=== PATIENT | female | born 1995 | race Caucasian/White ===

== ENCOUNTER 2017-06-13 23:12 | Emergency (ER) | payer BC ==
[2017-06-13 23:26] VITALS: BP 121/77
[2017-06-14 00:07] LABS: ABSOLUTE BASOPHILS # (AUTO) 0.1 10^3/uL (0.0-0.2); ABSOLUTE EOSINOPHILS # (AUTO) 0.2 10^3/uL (0.0-0.6); ABSOLUTE LYMPHOCYTES (AUTO) 3.7 10^3/uL (0.5-4.7); ABSOLUTE MONOCYTES (AUTO) 0.5 10^3/uL (0.1-1.4); ABSOLUTE NEUT (AUTO) 7.1 10^3/uL (1.7-8.2); EOSINOPHILS % (AUTO) 1.6 % (0-6); HEMATOCRIT 38.6 % (36.0-47.0); LYMPHOCYTES % (AUTO) 31.9 % (13-45); MEAN CORPUSCULAR HEMOGLOBIN 28.5 pg (27.0-33.4); MEAN CORPUSCULAR HGB CONC 33.5 g/dL (32.0-36.0); MEAN CORPUSCULAR VOLUME 85 fl (80-97); MONOCYTES % (AUTO) 4.2 % (3-13); PLATELET COUNT 274 10^3/uL (150-450); RED BLOOD COUNT 4.54 10^6/uL (3.72-5.28); RED CELL DISTRIBUTION WIDTH 13.6 % (11.5-14.0); SEGMENTED NEUTROPHILS % (AUTO) 61.3 % (42-78); TOTAL CELLS COUNTED % (AUTO) 100 %; WHITE BLOOD COUNT 11.6 10^3/uL (4.0-10.5)
[2017-06-14 00:18] LABS: ALANINE AMINOTRANSFERASE 19 U/L (9-52); ALBUMIN 4.6 g/dL (3.5-5.0); ALKALINE PHOSPHATASE 87 U/L (38-126); ANION GAP 15 (5-19); ASPARTATE AMINO TRANSFERASE 16 U/L (14-36); BILIRUBIN,DIRECT 0.2 mg/dL (0.0-0.4); BILIRUBIN,TOTAL 0.3 mg/dL (0.2-1.3); BLOOD UREA NITROGEN 13 mg/dL (7-20); CALCIUM 9.9 mg/dL (8.4-10.2); CARBON DIOXIDE 18 mmol/L (22-30); CHLORIDE 107 mmol/L (98-107); GLUCOSE 138 mg/dL (75-110); POTASSIUM 3.6 mmol/L (3.6-5.0); TOTAL PROTEIN 7.1 g/dL (6.3-8.2)
[2017-06-14 00:22] LABS: APPEARANCE,URINE SLIGHTLY-CLOUDY; BILIRUBIN,URINE NEGATIVE (NEGATIVE); CALCIUM OXALATE CRYSTALS,URINE MANY /HPF; COLOR,URINE YELLOW; GLUCOSE, URINE NEGATIVE (NEGATIVE); KETONES,URINE 20 mg/dL (NEGATIVE); LEUKOCYTE ESTERASE,URINE NEGATIVE (NEGATIVE); NITRITE,URINE NEGATIVE (NEGATIVE); PROTEIN,URINE NEGATIVE (NEGATIVE); URINE SPECIFIC GRAVITY 1.032; UROBILINOGEN,URINE NEGATIVE mg/dL (<2.0)
[2017-06-14] MEDS ORDERED: KETOROLAC TROMETHAMINE INJ/PF 30 MG/1 ML SDV IV ONE (00:43)
[2017-06-14] MEDS ORDERED: ONDANSETRON HCL INJ/PF 4 MG/2 ML SDV IV ONE (00:43)
--- NOTE | 2017-06-14 00:45 | ER Document Report ---
ED General - General Chief Complaint: Flank Pain Stated Complaint: FLANK PAIN Time Seen by Provider: 06/14/17 00:39 Mode of Arrival: Ambulatory Information source: Patient Notes: 21-year-old female no previous medical history presents with complaints of left flank pain rating to her groin. Patient notes the pain started approximately at 10:00 tonight. She denies any fevers or chills admits to nausea and vomiting. Patient denies any previous history of kidney stones, notes her father has extensive history of kidney stones TRAVEL OUTSIDE OF THE [place] IN LAST 30 DAYS: No - HPI Onset: Just prior to arrival Onset/Duration: Sudden Quality of pain: Sharp Severity: Moderate Pain Level: 2 Associated symptoms: Nausea, Vomiting Exacerbated by: Denies Relieved by: Denies Similar symptoms previously: No Recently seen / treated by doctor: No - Related Data Allergies/Adverse Reactions: No Known Allergies Allergy (Verified 06/13/17 23:19) Past Medical History - Social History Smoking Status: Never Smoker Cigarette use (# per day): No Chew tobacco use (# tins/day): No Smoking Education Provided: No Family History: Other - kidney stone Past Surgical History: Reports: Hx Oral Surgery, Hx Orthopedic Surgery - left knee Review of Systems - Review of Systems Notes: REVIEW OF SYSTEMS: CONSTITUTIONAL : Denies fever, chills, or sweats. Denies recent illness. EENT: Denies eye, ear, throat, or mouth pain or symptoms. Denies nasal or sinus congestion or discharge. Denies throat, tongue, or mouth swelling or difficulty swallowing. CARDIOVASCULAR: Denies chest pain. Denies palpitations or racing or irregular heart beat. Denies ankle edema. RESPIRATORY: Denies cough, cold, or chest congestion. Denies shortness of breath, difficulty breathing, or wheezing. GASTROINTESTINAL: Admits to left flank pain rating to the groin with nausea vomiting GENITOURINARY: Denies difficulty urinating, painful urination, burning, frequency, blood in urine, or discharge. FEMALE GENITOURINARY: Denies vaginal bleeding, heavy or abnormal periods, irregular periods. Denies vaginal discharge or odor. MUSCULOSKELETAL: Denies back or neck pain or stiffness. Denies joint pain or swelling. SKIN: Denies rash, lesions or sores. HEMATOLOGIC : Denies easy bruising or bleeding. LYMPHATIC: Denies swollen, enlarged glands. NEUROLOGICAL: Denies confusion or altered mental status. Denies passing out or loss of consciousness. Denies dizziness or lightheadedness. Denies headache. Denies weakness or paralysis or loss of use of either side. Denies problems with gait or speech. Denies sensory loss, numbness, or tingling. Denies seizures. PSYCHIATRIC: Denies anxiety or stress. Denies depression, suicidal ideation, or homicidal ideation. ALL OTHER SYSTEMS REVIEWED AND NEGATIVE. PHYSICAL EXAMINATION: GENERAL: Well-appearing, well-nourished and in no acute distress. HEAD: Atraumatic, normocephalic. EYES: Pupils equal round and reactive to light, extraocular movements intact, conjunctiva are normal. ENT: Nares patent, oropharynx clear without exudates. Moist mucous membranes. NECK: Normal range of motion, supple without lymphadenopathy LUNGS: Breath sounds clear to auscultation bilaterally and equal. No wheezes rales or rhonchi. HEART: Regular rate and rhythm without murmurs ABDOMEN: Soft, nontender, nondistended abdomen. No guarding, no rebound. No masses appreciated. Left CVA tenderness Female : deferred Musculoskeletal: Normal range of motion, no pitting or edema. No cyanosis. NEUROLOGICAL: Cranial nerves grossly intact. Normal speech, normal gait. Normal sensory, motor exams PSYCH: Normal mood, normal affect. SKIN: Warm, Dry, normal turgor, no rashes or lesions noted. Dictation was performed using [employer] voice recognition software Physical Exam - Vital signs Vitals: Temp Pulse Resp BP Pulse Ox 97.5 F 88 20 121/77 100 06/13/17 23:24 06/13/17 23:24 06/13/17 23:24 06/13/17 23:24 06/13/17 23:24 Course - Re-evaluation Re-evalutation: 06/14/17 00:44 Patient's presentation is consistent with kidney stone, CT is pending urinalysis noted no significant sinus infection 06/14/17 02:55 CT noted no significant abnormality, given the urinalysis I do believe the patient has calcium oxalate stone, she was given a strainer and just prior to discharge she did urinate and catch a tiny crystal Patient has been given urology follow-up After performing a Medical Screening Examination, I estimate there is LOW risk for ACUTE APPENDICITIS, BOWEL OBSTRUCTION, ACUTE CHOLECYSTITIS, PERFORATED DIVERTICULITIS, INCARCERATED HERNIA, PANCREATITIS, PELVIC INFLAMMATORY DISEASE, PERFORATED ULCER, ECTOPIC , or TUBO-OVARIAN ABSCESS, thus I consider the discharge disposition reasonable. Also, there is no evidence or peritonitis , sepsis, or toxicity. I have reevaluated this patient multiple times and no significant life threatening changes are noted. The patient and I have discussed the diagnosis and risks, and we agree with discharging home with close follow-up with the understanding that symptoms and presentations can change. We also discussed returning to the Emergency Department immediately if new or worsening symptoms occur. We have discussed the symptoms which are most concerning (e.g., bloody stool, fever, changing or worsening pain, vomiting) that necessitate immediate return. - Vital Signs Vital signs: Temp Pulse Resp BP Pulse Ox 97.5 F 88 20 121/77 100 06/13/17 23:24 06/13/17 23:24 06/13/17 23:24 06/13/17 23:24 06/13/17 23:24 - Laboratory Result Diagrams: 06/13/17 23:35 06/13/17 23:35 Laboratory results interpreted by me: 06/13/17 06/13/17 06/13/17 23:35 23:35 23:35 WBC 11.6 H Carbon Dioxide 18 L Glucose 138 H Urine Ketones 20 H - Diagnostic Test Radiology reviewed: Image reviewed, Reports reviewed Discharge - Discharge Clinical Impression: Kidney stone Condition: Stable Disposition: HOME, SELF-CARE Instructions: Kidney Stone ([facility]) Prescriptions: Ketorolac Tromethamine [Toradol 10 mg Tablet] 10 mg PO Q8 #30 tablet Metoclopramide HCl [Reglan] 10 mg PO Q6 #20 tablet Referrals: MARCUS MONAE MD [ACTIVE STAFF] - Follow up tomorrow
--- NOTE | 2017-06-14 01:53 | RADIOLOGY REPORT (SQ) ---
EXAM DESCRIPTION: CT ABDOMEN AND PELVIS WITHOUT CONTRAST CLINICAL HISTORY: left flank pain COMPARISON: None Available. TECHNIQUE: CT of the abdomen and pelvis without IV contrast. FINDINGS: Abdomen: The liver has normal size and density. No calcified gallstones. The spleen, pancreas, and adrenal glands are unremarkable. The kidneys have normal size and contour without evidence of hydronephrosis. No obstructing ureteral calculi. The aorta and IVC have normal caliber and position. No free intraperitoneal air. The stomach and duodenum have normal course. Pelvis: Uterus is not enlarged. Urinary bladder is unremarkable. No free pelvic fluid or lymphadenopathy. No dilated loops of large or small bowel. The appendix is not definitely identified however no right lower quadrant inflammatory change. Punctate calcified phleboliths in the pelvis. Hyperdense material in the distal colon may be related to previously administered oral contrast. The visualized lung bases are clear. No destructive bone lesions identified. DLP: 238.14 mGy-cm IMPRESSION: 1. No acute inflammatory or obstructive abnormality identified This exam was performed according to our departmental dose-optimization program, which includes automated exposure control, adjustment of the mA and/or kV according to patient size and/or use of iterative reconstruction technique.
== END 2017-06-14 02:40 | disposition home or self-care (01) ==
LOC: ER 23:12
DX: N20.0 Calculus of kidney (principal); R10.30 Lower abdominal pain, unspecified; R11.2 Nausea with vomiting, unspecified
CPT/HCPCS: 99284; 96374; 96375; 36415; 87086; 83690; 85025; 81025; 80053; 81001; 76380; J1885; J2405

== ENCOUNTER 2017-07-18 08:57 | Emergency (ER) | payer BC ==
[2017-07-18] MEDS ORDERED: NORMAL SALINE 1000 ML 900 ML IV ONE (10:15)
--- NOTE | 2017-07-18 10:18 | ER Document Report ---
ED General - General Chief Complaint: High Blood Pressure Stated Complaint: BLOOD PRESSURE PROBLEMS Time Seen by Provider: 07/18/17 09:58 Mode of Arrival: Ambulatory Information source: Patient, Parent Notes: Patient states that she felt faint this morning and then started to have palpitations. Patient states at the time she had chest pain, nausea and dizziness. Patient states symptoms lasted for about an hour. Patient states that her left arm has felt weird and she has had tingling to the left fourth and fifth fingers to the level about her elbow. Patient does state she had a similar episode about a week ago but did not get seen after that incident. States she did eat breakfast today. Patient presently denies any complaints at this time. TRAVEL OUTSIDE OF THE [place] IN LAST 30 DAYS: No - HPI Onset: This morning Onset/Duration: Better Quality of pain: Pressure Pain Level: Denies Associated symptoms: Chest pain, Nausea. denies: Nonproductive cough, Productive cough, Fever, Vomiting, Shortness of breath Exacerbated by: Denies Relieved by: Denies Similar symptoms previously: Yes Recently seen / treated by doctor: No - Related Data Allergies/Adverse Reactions: No Known Allergies Allergy (Verified 07/18/17 09:08) Past Medical History - General Information source: Patient, Parent - Social History Smoking Status: Never Smoker Chew tobacco use (# tins/day): No Frequency of alcohol use: None Drug Abuse: None Occupation: Student Lives with: Family Family History: None Patient has suicidal ideation: No Patient has homicidal ideation: No - Medical History Medical History: Negative Renal/ Medical History: Denies: Hx Peritoneal Dialysis Past Surgical History: Reports: Hx Oral Surgery, Hx Orthopedic Surgery - left knee, Hx Tonsillectomy Review of Systems - Review of Systems Constitutional: No symptoms reported. denies: Fever, Recent illness EENT: No symptoms reported Cardiovascular: Chest pain, Palpitations, Dizziness Respiratory: No symptoms reported. denies: Cough Gastrointestinal: Nausea. denies: Vomiting Genitourinary: No symptoms reported Female Genitourinary: No symptoms reported Musculoskeletal: No symptoms reported Skin: No symptoms reported Hematologic/Lymphatic: No symptoms reported Neurological/Psychological: Tingling - Left upper extremity. denies: Confusion Physical Exam - Vital signs Vitals: Temp Pulse Resp BP Pulse Ox 98.5 F 105 H 16 126/65 H 100 07/18/17 09:12 07/18/17 09:12 07/18/17 09:12 07/18/17 09:12 07/18/17 09:12 - General General appearance: Appears well, Alert In distress: None - HEENT Head: Normocephalic Eyes: Normal Conjunctiva: Normal Ears: Normal Nasal: Normal Mouth/Lips: Normal Mucous membranes: Normal Neck: Normal, Supple. No: Lymphadenopathy, Meningismus - Respiratory Respiratory status: No respiratory distress Chest status: Nontender Breath sounds: Normal. No: Rales, Rhonchi, Stridor, Wheezing Chest palpation: Normal - Cardiovascular Rhythm: Tachycardia Heart sounds: S1 appreciated, S2 appreciated Murmur: No - Abdominal Inspection: Normal Distension: No distension Bowel sounds: Normal Tenderness: Nontender Organomegaly: No organomegaly - Back Back: Normal, Nontender. No: CVA tenderness - Extremities General upper extremity: Normal inspection, Normal ROM General lower extremity: Normal inspection, Normal ROM. No: Edema - Neurological Neuro grossly intact: Yes Cognition: Normal Orientation: AAOx4 Mary Coma Scale Eye Opening: Spontaneous Mary Coma Scale Verbal: Oriented [place] Coma Scale Motor: Obeys Commands Mary Coma Scale Total: 15 Speech: Normal. No: Dysarthria Cranial nerves: Normal Motor strength normal: LUE, RUE, LLE, RLE - Psychological Associated symptoms: Normal affect, Normal mood - Skin Skin Temperature: Warm Skin Moisture: Dry Skin Color: Pale Course - Re-evaluation Re-evalutation: 07/18/17 12:[address] Weiss regarding patient presentation, reviewed patient's EKG and diagnostic test results. No additional testing advised at this time. The patient has atypical chest pain as the patient's chest pain is not suggestive of pulmonary embolus, cardiac ischemia, aortic dissection, or other serious etiology. Given the extremely low risk of these diagnoses for the test in evaluation for these possibilities does not appear to be indicated at this time. Patient has been instructed to return if the symptoms worsen or change in any way.Heart score 0. - Vital Signs Vital signs: Temp Pulse Resp BP Pulse Ox 98.1 F 90 16 125/60 100 07/18/17 13:10 07/18/17 13:10 07/18/17 13:10 07/18/17 13:10 07/18/17 13:10 - Laboratory Result Diagrams: 07/18/17 11:10 07/18/17 11:10 Laboratory results interpreted by me: 07/18/17 07/18/17 11:10 11:10 WBC 11.5 H Absolute Neutrophils 8.9 H Calcium 10.4 H Labs- Entire Visit 07/18/17 07/18/17 07/18/17 09:51 11:10 11:10 WBC 11.5 H RBC 4.63 Hgb 13.4 Hct 40.0 MCV 86 MCH 28.9 MCHC 33.5 RDW 13.4 Plt Count 272 Seg Neutrophils % 76.9 Lymphocytes % 17.5 Monocytes % 4.2 Eosinophils % 0.6 Basophils % 0.8 Absolute Neutrophils 8.9 H Absolute Lymphocytes 2.0 Absolute Monocytes 0.5 Absolute Eosinophils 0.1 Absolute Basophils 0.1 D-Dimer < 0.27 Sodium Potassium Chloride Carbon Dioxide Anion Gap BUN Creatinine Est GFR ( Amer) Est GFR (Non-Af Amer) Glucose Calcium Total Bilirubin Direct Bilirubin Neonat Total Bilirubin Neonat Direct Bilirubin Neonat Indirect Bili AST ALT Alkaline Phosphatase Creatine Kinase CK-MB (CK-2) Troponin I Total Protein Albumin TSH Serum HCG, Qual Urine Color STRAW Urine Appearance CLEAR Urine pH 6.0 Ur Specific [place] 1.006 Urine Protein NEGATIVE Urine Glucose (UA) NEGATIVE Urine Ketones NEGATIVE Urine Blood NEGATIVE Urine Nitrite NEGATIVE Urine Bilirubin NEGATIVE Urine Urobilinogen NEGATIVE Ur Leukocyte Esterase NEGATIVE Urine WBC (Auto) 0 Urine RBC (Auto) 0 Urine Mucus (Auto) RARE Urine Ascorbic Acid NEGATIVE 07/18/17 07/18/17 07/18/17 11:10 11:10 11:10 WBC RBC Hgb Hct MCV MCH MCHC RDW Plt Count Seg Neutrophils % Lymphocytes % Monocytes % Eosinophils % Basophils % Absolute Neutrophils Absolute Lymphocytes Absolute Monocytes Absolute Eosinophils Absolute Basophils D-Dimer Sodium 141.3 Potassium 4.7 Chloride 105 Carbon Dioxide 23 Anion Gap 13 BUN 10 Creatinine 0.63 Est GFR ( Amer) > 60 Est GFR (Non-Af Amer) > 60 Glucose 79 Calcium 10.4 H Total Bilirubin 0.3 Direct Bilirubin 0.1 Neonat Total Bilirubin Not Reportable Neonat Direct Bilirubin Not Reportable Neonat Indirect Bili Not Reportable AST 20 ALT 21 Alkaline Phosphatase 76 Creatine Kinase 50 CK-MB (CK-2) 0.38 Troponin I < 0.012 Total Protein 7.4 Albumin 4.8 TSH Serum HCG, Qual NEGATIVE Urine Color Urine Appearance Urine pH Ur Specific [place] Urine Protein Urine Glucose (UA) Urine Ketones Urine Blood Urine Nitrite Urine Bilirubin Urine Urobilinogen Ur Leukocyte Esterase Urine WBC (Auto) Urine RBC (Auto) Urine Mucus (Auto) Urine Ascorbic Acid 07/18/17 11:10 WBC RBC Hgb Hct MCV MCH MCHC RDW Plt Count Seg Neutrophils % Lymphocytes % Monocytes % Eosinophils % Basophils % Absolute Neutrophils Absolute Lymphocytes Absolute Monocytes Absolute Eosinophils Absolute Basophils D-Dimer Sodium Potassium Chloride Carbon Dioxide Anion Gap BUN Creatinine Est GFR ( Amer) Est GFR (Non-Af Amer) Glucose Calcium Total Bilirubin Direct Bilirubin Neonat Total Bilirubin Neonat Direct Bilirubin Neonat Indirect Bili AST ALT Alkaline Phosphatase Creatine Kinase CK-MB (CK-2) Troponin I Total Protein Albumin TSH 1.21 Serum HCG, Qual Urine Color Urine Appearance Urine pH Ur Specific [place] Urine Protein Urine Glucose (UA) Urine Ketones Urine Blood Urine Nitrite Urine Bilirubin Urine Urobilinogen Ur Leukocyte Esterase Urine WBC (Auto) Urine RBC (Auto) Urine Mucus (Auto) Urine Ascorbic Acid - Diagnostic Test Radiology reviewed: Reports reviewed - EKG Interpretation by Me EKG shows normal: Sinus rhythm Rate: Normal Discharge - Discharge Clinical Impression: Palpitations Chest pain Qualifiers: Chest pain type: unspecified Qualified Code(s): R07.9 - Chest pain, unspecified Condition: Stable Disposition: HOME, SELF-CARE Instructions: Chest Pain of Unclear Cause ([facility]), Palpitations (Irregular or Rapid Heartrate) ([facility]) Additional Instructions: Return immediately for any new or worsening symptoms Followup with your primary care provider, call tomorrow to make a followup appointment Follow-up with your manager sas for recheck Forms: Return to School Referrals: MIKAEL TRAN MD [ACTIVE STAFF] - Follow up in 3-5 days
[2017-07-18 10:43] LABS: APPEARANCE,URINE CLEAR; BILIRUBIN,URINE NEGATIVE (NEGATIVE); COLOR,URINE STRAW; GLUCOSE, URINE NEGATIVE (NEGATIVE); KETONES,URINE NEGATIVE (NEGATIVE); LEUKOCYTE ESTERASE,URINE NEGATIVE (NEGATIVE); NITRITE,URINE NEGATIVE (NEGATIVE); PROTEIN,URINE NEGATIVE (NEGATIVE); URINE SPECIFIC GRAVITY 1.006; UROBILINOGEN,URINE NEGATIVE mg/dL (<2.0)
--- NOTE | 2017-07-18 10:52 | RADIOLOGY REPORT (SQ) ---
EXAM DESCRIPTION: CHEST PA/LAT COMPLETED DATE/TIME: 07/18/2017 10:42 am REASON FOR STUDY: cp COMPARISON: None. EXAM PARAMETERS: NUMBER OF VIEWS: two views TECHNIQUE: Digital Frontal and Lateral radiographic views of the chest acquired. RADIATION DOSE: NA LIMITATIONS: none FINDINGS: LUNGS AND PLEURA: No opacities, masses or pneumothorax. No pleural effusion. MEDIASTINUM AND HILAR STRUCTURES: No masses or contour abnormalities. HEART AND VASCULAR STRUCTURES: Heart normal size. No evidence for failure. BONES: No acute findings. HARDWARE: None in the chest. OTHER: No other significant finding. IMPRESSION: NO SIGNIFICANT RADIOGRAPHIC FINDING IN THE CHEST. TECHNICAL DOCUMENTATION: JOB ID: [id number] [employer]- All Rights Reserved
--- NOTE | 2017-07-18 11:01 | EKG REPORT ---
SEVERITY:- NORMAL ECG - SINUS RHYTHM : Confirmed by: Billy Parker 18-Jul-2017 11:01:03
[2017-07-18 11:33] LABS: ABSOLUTE BASOPHILS # (AUTO) 0.1 10^3/uL (0.0-0.2); ABSOLUTE EOSINOPHILS # (AUTO) 0.1 10^3/uL (0.0-0.6); ABSOLUTE MONOCYTES (AUTO) 0.5 10^3/uL (0.1-1.4); ABSOLUTE NEUT (AUTO) 8.9 10^3/uL (1.7-8.2); BASOPHILS % (AUTO) 0.8 % (0-2); EOSINOPHILS % (AUTO) 0.6 % (0-6); HEMOGLOBIN 13.4 g/dL (12.0-15.5); LYMPHOCYTES % (AUTO) 17.5 % (13-45); MEAN CORPUSCULAR HEMOGLOBIN 28.9 pg (27.0-33.4); MEAN CORPUSCULAR HGB CONC 33.5 g/dL (32.0-36.0); MEAN CORPUSCULAR VOLUME 86 fl (80-97); MONOCYTES % (AUTO) 4.2 % (3-13); PLATELET COUNT 272 10^3/uL (150-450); RED BLOOD COUNT 4.63 10^6/uL (3.72-5.28); RED CELL DISTRIBUTION WIDTH 13.4 % (11.5-14.0); SEGMENTED NEUTROPHILS % (AUTO) 76.9 % (42-78); TOTAL CELLS COUNTED % (AUTO) 100 %; WHITE BLOOD COUNT 11.5 10^3/uL (4.0-10.5)
[2017-07-18 11:49] LABS: ALANINE AMINOTRANSFERASE 21 U/L (9-52); ALBUMIN 4.8 g/dL (3.5-5.0); ALKALINE PHOSPHATASE 76 U/L (38-126); ANION GAP 13 (5-19); ASPARTATE AMINO TRANSFERASE 20 U/L (14-36); BILIRUBIN,DIRECT 0.1 mg/dL (0.0-0.4); BILIRUBIN,TOTAL 0.3 mg/dL (0.2-1.3); BLOOD UREA NITROGEN 10 mg/dL (7-20); CALCIUM 10.4 mg/dL (8.4-10.2); CARBON DIOXIDE 23 mmol/L (22-30); CHLORIDE 105 mmol/L (98-107); CREATINE KINASE 50 U/L (30-135); GLUCOSE 79 mg/dL (75-110); POTASSIUM 4.7 mmol/L (3.6-5.0); SODIUM 141.3 mmol/L (137-145); TOTAL PROTEIN 7.4 g/dL (6.3-8.2)
[2017-07-18 12:06] LABS: CREATINE KINASE MB 0.38 ng/mL (<4.55); TROPONIN I < 0.012 ng/mL
[2017-07-18 13:11] VITALS: BP 125/60
== END 2017-07-18 13:11 | disposition home or self-care (01) ==
LOC: ER 08:57
DX: R07.9 Chest pain, unspecified (principal); R00.2 Palpitations; R03.0 Elevated blood-pressure reading, without diagnosis of hypertension; R11.0 Nausea; R42 Dizziness and giddiness; R20.0 Anesthesia of skin
CPT/HCPCS: 93005; 99285; 96360; 36415; 82553; 82550; 84443; 84703; 85025; 80053; 81001; 84484; 85379; 71046; 93010; J7030

== ENCOUNTER 2018-05-15 20:14 | Emergency (ER) | payer BC ==
--- NOTE | 2018-05-15 21:38 | ER Document Report ---
ED General - General Chief Complaint: Other Stated Complaint: NEEDS SHOT Time Seen by Provider: 05/15/18 21:07 Notes: Patient is a 22-year old female at approximately 7 weeks gestation who presents due to concerns of needing RhoGam. The patient was seen as an outpatient earlier today, diagnosed with a intrauterine with an active heart rate but was informed that she was Rh- and would need to come to the emergency department for RhoGam administration. She states that she has had some intermittent cramping since the onset of bleeding over the last several days and mild vaginal spotting. That pain is mild, intermittent and not improved or worsened by any factor. Denies any active bleeding currently. Denies any new concerns stating that her only reason for coming to the emergency department today is for RhoGam administration. TRAVEL OUTSIDE OF THE [place] IN LAST 30 DAYS: No - Related Data Allergies/Adverse Reactions: No Known Allergies Allergy (Verified 07/18/17 09:08) Past Medical History - General Information source: Patient - Social History Smoking Status: Never Smoker Chew tobacco use (# tins/day): No Frequency of alcohol use: None Drug Abuse: None Lives with: Parents Family History: Reviewed & Not Pertinent Patient has suicidal ideation: No Patient has homicidal ideation: No Renal/ Medical History: Denies: Hx Peritoneal Dialysis Past Surgical History: Reports: Hx Oral Surgery, Hx Orthopedic Surgery - left knee, Hx Tonsillectomy Review of Systems - Review of Systems Notes: Constitutional: Negative for fever. HENT: Negative for sore throat. Eyes: Negative for visual changes. Cardiovascular: Negative for chest pain. Respiratory: Negative for shortness of breath. Gastrointestinal: Positive for abdominal cramping Genitourinary: Positive for vaginal bleeding Musculoskeletal: Negative for back pain. Skin: Negative for rash. Neurological: Negative for headaches, weakness or numbness. 10 point ROS negative except as marked above and in HPI. Physical Exam - Vital signs Vitals: Temp Pulse Resp BP Pulse Ox 98.6 F 102 H 15 122/69 100 05/15/18 20:40 05/15/18 20:40 05/15/18 20:40 05/15/18 20:40 05/15/18 20:40 Interpretation: Tachycardic Notes: PHYSICAL EXAMINATION: GENERAL: Well-appearing, well-nourished and in no acute distress. HEAD: Atraumatic, normocephalic. EYES: Pupils equal round and reactive to light, extraocular movements intact, sclera anicteric, conjunctiva are normal. ENT: nares patent, oropharynx clear without exudates. Moist mucous membranes. NECK: Normal range of motion, supple without lymphadenopathy LUNGS: Breath sounds clear to auscultation bilaterally and equal. No wheezes rales or rhonchi. HEART: Regular rate and rhythm without murmurs ABDOMEN: Soft, nontender, normoactive bowel sounds. No guarding, no rebound. No masses appreciated. EXTREMITIES: Normal range of motion, no pitting or edema. No cyanosis. NEUROLOGICAL: No focal neurological deficits. Moves all extremities spontaneously and on command. PSYCH: Normal mood, normal affect. SKIN: Warm, Dry, normal turgor, no rashes or lesions noted. Course - Re-evaluation Re-evalutation: 05/15/18 21:37 Patient presents with a need for rhogam. She has had light vaginal spotting over the past 48 hours, already had an outpatient workup done today that showed a viable iup but that she is rh negative. She was referred to the emergency department exclusively for administration of RhoGam. she denies any other current complaints. She has received a appropriate dose of RhoGam here in the emergency department and will be discharged home. At this time will discharge with return precautions and follow-up recommendations. Verbal discharge instructions given a the bedside and opportunity for questions given. Medication warnings reviewed. Patient is in agreement with this plan and has verbalized understanding of return precautions and the need for primary care follow-up in the next 24-72 hours. - Vital Signs Vital signs: Temp Pulse Resp BP Pulse Ox 98.5 F 92 18 102/68 99 05/16/18 00:28 05/16/18 00:28 05/16/18 00:28 05/16/18 00:28 05/16/18 00:28 Discharge - Discharge Clinical Impression: Need for rhogam due to Rh negative mother, First trimester bleeding Condition: Good Disposition: HOME, SELF-CARE Additional Instructions: You were seen today for Rhogam. Please follow closely with your primary care OB/ ELEV[employer] MECH[employer]IC. Please return if you develop severe abdominal pain, bleeding that goes through more than 2 pads for more than 2 hours, pass out, or have any other symptoms that are concerning to you. Please follow-up closely with your OBGYN regarding todays visit.
[2018-05-16 00:30] VITALS: BP 102/68
== END 2018-05-16 00:34 | disposition home or self-care (01) ==
LOC: ER 20:14
DX: O36.0910 Maternal care for other rhesus isoimmunization, first trimester, not applicable or unspecified (principal); Z3A.01 Less than 8 weeks gestation of pregnancy
CPT/HCPCS: 99283; 96372; 86900; 86901; 36415; J2790

== ENCOUNTER → 2018-05-15 | Outpatient (CLI) | payer BC | LOC: OD 16:29 | PROVIDERS: ATTEND Midwife | DX: O26.859 Spotting complicating pregnancy, unspecified trimester (principal) | CPT/HCPCS: 36415; 86850; 86900; 86901 ==

== ENCOUNTER 2018-11-18 18:18 | Observation (INO) | payer BC ==
[2018-11-18 19:03] LABS: APPEARANCE,URINE CLEAR; BILIRUBIN,URINE NEGATIVE (NEGATIVE); COLOR,URINE COLORLESS; GLUCOSE, URINE NEGATIVE (NEGATIVE); KETONES,URINE NEGATIVE (NEGATIVE); LEUKOCYTE ESTERASE,URINE NEGATIVE (NEGATIVE); NITRITE,URINE NEGATIVE (NEGATIVE); PROTEIN,URINE NEGATIVE (NEGATIVE); URINE SPECIFIC GRAVITY 1.001; UROBILINOGEN,URINE NEGATIVE mg/dL (<2.0)
[2018-11-18 19:18] LABS: URINE AMPHETAMINES SCREEN NEGATIVE; URINE BARBITURATES SCREEN NEGATIVE; URINE BENZODIAZEPINES SCREEN NEGATIVE; URINE COCAINE SCREEN NEGATIVE; URINE MARIJUANA (THC) SCREEN NEGATIVE; URINE METHADONE SCREEN NEGATIVE; URINE PHENCYCLIDINE SCREEN NEGATIVE
[2018-11-18] MEDS ORDERED: RINGERS SOLUTION,LACTATED 1,000 ML IV PRN (19:34)
[2018-11-18] MEDS ORDERED: RINGERS SOLUTION,LACTATED 1,000 ML IV ONE (19:34)
[2018-11-18 20:30] LABS: EPITHELIALS (WET MOUNT) 3+ EPITHELIALS SEEN; RBCS (WET MOUNT) NO RBCS SEEN; T.VAGINALIS (WET MOUNT) NO TRICHOMONAS SEEN; WBCS (WET MOUNT) RARE WBCS SEEN; YEAST (WET MOUNT) NO YEAST SEEN
[2018-11-18] MEDS ORDERED: HYDROXYZINE PAMOATE 50 MG CAPSULE ONE (21:33)
[2018-11-18 21:57] LABS: CHLAM PCR NOT DETECTED (NOT DETECT)
[2018-11-18] MEDS ORDERED: NIFEDIPINE 10 MG CAPSULE ONE (22:36)
[2018-11-18] MEDS ORDERED: BETAMET ACET/BETAMET NA INJ 6 MG/1 ML ONE ×3 (22:36→22:49)
[2018-11-18] MEDS ORDERED: NIFEDIPINE 10 MG CAPSULE PO ONE (22:45)
[2018-11-18] MEDS ORDERED: BETAMET ACET/BETAMET NA INJ 6 MG/1 ML IM ONE (22:45)
[2018-11-19] MEDS ORDERED: NIFEDIPINE 10 MG CAPSULE PO SCH (03:00)
--- NOTE | 2018-11-19 06:51 | Admission Physical ---
Datetime Report Generated by CPN: 11/19/2018 06:51 CURRENT ADMISSION Chief Complaint: Uterine Contractions Indication for Induction: Not Applicable Admit Impression : , Intrauterine ; No Active Labor; Observation/Evaluation Admit Plan: Admit to Unit; Observation/Evaluation ALLERGIES Medication Allergies: No Medication Allergies: No Known Allergies (07/18/2017) Latex: No Latex Allergies OBSTETRICAL HISTORY EDC: 01/06/2019 00:00 : 1 Para: 0 SEE RECORDS Alcohol: No Marijuana : No Cocaine: No Other Illicit Drugs: No Cigarettes: Never Smoker. [id number] PHYSICAL EXAM General: Normal HEENT: Normal Neurologic: Normal Thyroid: Deferred Heart: Normal Lungs: Normal Breast: Deferred Back: Normal Abdomen: Normal Genitourinary Exam: Normal Extremities: Normal DTRs: Normal Pelvic Type: Adequate Vital Signs: Reviewed VAGINAL EXAM Dilatation: 1 Effacement: 60 Station: 0 Contraction Comments: q 2-3 MEMBRANES Membranes: Intact FETUS A EGA: 33.0 Monitoring: External US FHR- Baseline: 130 Variability: Moderate 6-25bpm Accelerations: 15X15 Decelerations: None FHR Category: Category I Presentation: Vertex Admit Comment: 23yo at 33+1ega presents with c/o contractions. She was noted to be having contractions q 2minutes painfully. Vistaril did not help to dissipate patients discomfort. Rh negative. Declined pap smear on new OB visit. Admit to labor and delivery. Celestone 12mg IM x 1 then repeat in 24 hrs. Cervical exam 1.5cm dilated and stable after Procardia 10mg Q 6 hours. If procardia continues to help with contractions and cvx doesnt change likely able to go home after next BMZ. PLANS FOR LABOR AND DELIVERY Labor and Delivery: None Pain Management: Medications; Epidural Feeding Preference: Breast Benefit of Breast Feed Discussed: Yes Circumcision: Yes INFORMED CONSENT Informed Consent Obtained: Vaginal Delivery; Risks, Benefits and Alternatives Discussed Signature: with User ID: [email or web address]
[2018-11-19] MEDS ORDERED: NIFEDIPINE 30 MG TAB.ER.24 PO ONE (07:26)
[2018-11-19] MEDS ORDERED: BETAMET ACET/BETAMET NA INJ 6 MG/1 ML IM PRN (09:04)
[2018-11-19] MEDS ORDERED: BETAMET ACET/BETAMET NA INJ 6 MG/1 ML ONE (11:02)
== END 2018-11-19 13:44 | disposition home or self-care (01) ==
LOC: LC 18:18 → LR 23:16
PROVIDERS: ADMIT Student in an Organized Health Care Education/Training Program; ATTEND Student in an Organized Health Care Education/Training Program
DX: O60.03 Preterm labor without delivery, third trimester (principal)
CPT/HCPCS: 59025; 80307; 81001; 87081; 87210; 87491; 87591; J0702; J3490

== ENCOUNTER 2018-12-10 11:32 | Outpatient (CLI) | payer BC, MEDICAID ==
--- NOTE | 2018-12-10 11:49 | Non Stress Test Report ---
Non Stress Test Datetime Report Generated by CPN: 12/10/2018 11:48 DEMOGRAPHIC EGA NST: 33.1 INDICATION Indication for Study: labor VITAL SIGNS Temperature - NST: 98.1 Pulse - NST: 102 RESP - NST: 18 NBPSYS NST: 114 NBPDIA NST: 68 MONITORING Monitor Explained: Monitor Explained; Test Explained; Patient Verbalized Understanding Time on Monitor: 11/19/2018 07:30 Time off Monitor: 11/19/2018 07:50 NST Duration: 20 NST INTERVENTIONS NST Interventions: PO Hydration; IV Fluids; Reposition Patient Physician Notified NST: J Rodrigues CNM BABY A: [id number] BABY A Movement : Present Contraction Frequency : irregular FHR Baseline : 135 Accelerations : 15X15 Decelerations : None Variability : Moderate 6-25bpm NST Review: Meets Criteria for Reactive NST NST Review and Verified By : Preston Wagner RN NST Results: Reactive NST REPORT Report Trigger: Send Report
[2018-12-10 12:11] LABS: APPEARANCE,URINE CLEAR; BILIRUBIN,URINE NEGATIVE (NEGATIVE); COLOR,URINE YELLOW; GLUCOSE, URINE NEGATIVE (NEGATIVE); KETONES,URINE TRACE mg/dL (NEGATIVE); LEUKOCYTE ESTERASE,URINE NEGATIVE (NEGATIVE); NITRITE,URINE NEGATIVE (NEGATIVE); PROTEIN,URINE NEGATIVE (NEGATIVE); URINE SPECIFIC GRAVITY 1.017; UROBILINOGEN,URINE NEGATIVE mg/dL (<2.0)
[2018-12-10 12:29] LABS: URINE AMPHETAMINES SCREEN NEGATIVE; URINE BARBITURATES SCREEN NEGATIVE; URINE BENZODIAZEPINES SCREEN NEGATIVE; URINE COCAINE SCREEN NEGATIVE; URINE MARIJUANA (THC) SCREEN NEGATIVE; URINE METHADONE SCREEN NEGATIVE; URINE PHENCYCLIDINE SCREEN NEGATIVE
== END 2018-12-10 13:40 | disposition home or self-care (01) ==
LOC: LC 11:32
PROVIDERS: ATTEND Obstetrics & Gynecology
PROC: 4A1HXCZ Monitoring of Products of Conception, Cardiac Rate, External Approach (ICD-10-PCS; principal; 2018-12-10)
DX: O47.03 False labor before 37 completed weeks of gestation, third trimester (principal); Z3A.36 36 weeks gestation of pregnancy
CPT/HCPCS: 59025; 80307; 81001; 84112

== ENCOUNTER 2018-12-24 12:21 | Outpatient (CLI) | payer BC, MEDICAID ==
[2018-12-24 12:45] LABS: APPEARANCE,URINE SLIGHTLY-CLOUDY; BILIRUBIN,URINE NEGATIVE (NEGATIVE); COLOR,URINE YELLOW; GLUCOSE, URINE NEGATIVE (NEGATIVE); KETONES,URINE NEGATIVE (NEGATIVE); LEUKOCYTE ESTERASE,URINE MODERATE (NEGATIVE); NITRITE,URINE NEGATIVE (NEGATIVE); PROTEIN,URINE 30 mg/dL (NEGATIVE); URINE SPECIFIC GRAVITY 1.023; UROBILINOGEN,URINE NEGATIVE mg/dL (<2.0)
[2018-12-24 13:06] LABS: URINE AMPHETAMINES SCREEN NEGATIVE; URINE BARBITURATES SCREEN NEGATIVE; URINE BENZODIAZEPINES SCREEN NEGATIVE; URINE COCAINE SCREEN NEGATIVE; URINE MARIJUANA (THC) SCREEN NEGATIVE; URINE METHADONE SCREEN NEGATIVE; URINE PHENCYCLIDINE SCREEN NEGATIVE
--- NOTE | 2018-12-24 14:48 | RADIOLOGY REPORT (SQ) ---
EXAM DESCRIPTION: U/S OB LIMITED COMPLETED DATE/TIME: 12/24/2018 2:24 pm REASON FOR STUDY: cervical lenght vaginal bleeding possible bleeding COMPARISON: None. TECHNIQUE: Limited transabdominal grayscale ultrasound for evaluation of specific requested obstetri juan alberto parameters. LIMITATIONS: None. FINDINGS: CERVICAL LENGTH: 1.1 cm Closed. ELY: 13.3 cm. FHR: 141 beats per minute. PRESENTATION: Cephalic. PLACENTA: Anterior. ANATOMY: Not assessed OTHER: No other significant findings. IMPRESSION: LIMITED OBSTETRICAL ULTRASOUND WITH MEASURED PARAMETERS DELINEATED ABOVE. Trimester of : Third trimester - 28 weeks to delivery. TECHNICAL DOCUMENTATION: JOB ID: [id number] [employer]- All Rights Reserved Reading location - IP/workstation name: [email or web address]
--- NOTE | 2018-12-24 14:57 | Non Stress Test Report ---
Non Stress Test Datetime Report Generated by CPN: 12/24/2018 14:56 DEMOGRAPHIC EGA NST: 38.1 EGA NST: 36.1 INDICATION Indication for Study: Ordered by Provider Indication for Study: Other Indication for Study (NST) Other: LABOR CHECK MONITORING Monitor Explained: Monitor Explained; Test Explained; Patient Verbalized Understanding Monitor Explained: Monitor Explained; Test Explained; Patient Verbalized Understanding Time on Monitor: 12/24/2018 12:31 Time on Monitor: 12/10/2018 11:52 Time off Monitor: 12/24/2018 14:49 Time off Monitor: 12/10/2018 13:27 NST Duration: 138 NST Duration: 95 NST INTERVENTIONS NST Interventions: PO Hydration NST Interventions: PO Hydration; Reposition Patient Physician Notified NST: Jose E Dodd CNM Physician Notified NST: Santosh DODD CNM BABY A: [id number] BABY A Movement : Present Movement : Present Contraction Frequency : IRREGULAR Contraction Frequency : RARE FHR Baseline : 130 FHR Baseline : 140 Accelerations : 15X15 Accelerations : 15X15 Decelerations : None Decelerations : None Variability : Moderate 6-25bpm Variability : Moderate 6-25bpm NST Review: Meets Criteria for Reactive NST NST Review: Meets Criteria for Reactive NST NST Review and Verified By : DORA Gomez NST Review and Verified By : Paulino Palma RN NST Results: Reactive NST Results: Reactive NST REPORT Report Trigger: Send Report
== END 2018-12-24 15:00 | disposition home or self-care (01) ==
LOC: LC 12:21
PROVIDERS: ATTEND Obstetrics & Gynecology Gynecology
PROC: 4A1HXCZ Monitoring of Products of Conception, Cardiac Rate, External Approach (ICD-10-PCS; principal; 2018-12-24)
DX: O47.1 False labor at or after 37 completed weeks of gestation (principal); Z3A.38 38 weeks gestation of pregnancy
CPT/HCPCS: 59025; 76815; 80307; 81005

== ENCOUNTER 2020-01-05 14:57 | Emergency (ER) | payer BC, MEDICAID ==
--- NOTE | 2020-01-05 15:11 | ER Document Report ---
ED Medical Screen (RME) - General Stated Complaint: VAGINAL DISCHARGE Primary Care Provider: KIERAN VALERIO MD [Primary Care Provider] - Follow up as needed Notes: Patient is 24-year-old white female who is at approximately 18 weeks gestation who presents to the emergency department with a chief complaint of pressure in the vagina and pelvis. States that she felt some liquid in the vaginal area, looked and noticed upon spreading her labia what appears to be a flesh-colored sac with a pinpoint hole in it that is draining fluid. 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 [facility] and has had discussions of possible cerclage but reports that the INSTRUMENTATION DESIGNER she is seeing now was not comfortable placing a cerclage as a felt that they would rupture her membranes. Patient denies any pain or bleeding. Charge nurse notified of patient status and need for immediate room and pelvic exam. I have treated and performed a rapid initial assessment of this patient. A comprehensive ED assessment and evaluation of the patient, analysis of test results and completion of medical decision making process will be conducted by additional ED providers. PHYSICAL EXAMINATION: GENERAL: Well-appearing, well-nourished and in no acute distress. A&Ox4. Answers questions appropriately. TRAVEL OUTSIDE OF THE [place] IN LAST 30 DAYS: No - Related Data Allergies/Adverse Reactions: No Known Allergies Allergy (Verified 11/19/18 07:50) Past Medical History Renal/ Medical History: Denies: Hx Peritoneal Dialysis Past Surgical History: Reports: Hx Oral Surgery, Hx Orthopedic Surgery - left knee, Hx Tonsillectomy Physical Exam - Vital signs Vitals: Temp Pulse Resp BP Pulse Ox 98.6 F 125 H 16 145/78 H 100 01/05/20 15:01/05/20 15:01/05/20 15:01/05/20 15:01 01/05/20 15:01 Course - Vital Signs Vital signs: Temp Pulse Resp BP Pulse Ox 98.6 F 125 H 16 145/78 H 100 01/05/20 15:01 01/05/20 15:01 01/05/20 15:01 01/05/20 15:01 01/05/20 15:01 Doctor's Discharge - Discharge Referrals: KIERAN VALERIO MD [Primary Care Provider] - Follow up as needed
--- NOTE | 2020-01-05 16:23 | ER Document Report ---
ED General - General Chief Complaint: OB Problem (<20wks) Stated Complaint: VAGINAL DISCHARGE Time Seen by Provider: 01/05/20 15:14 Primary Care Provider: KIERAN VALERIO MD [ACTIVE STAFF] - Follow up as needed Notes: 24-year-old female who is a G2, P1 at 18 weeks gestation presents emergency department complaining of lower abdominal pressure feeling like she needed to urinate earlier today. States she got into the shower and felt like she was urinating on herself but when she looked she saw clear liquid coming out of her vagina and stated she saw some sort of a bag or something else bulging out from her vagina that looked like it had a hole in it. She states that is what looked like it was leaking. Denies bloody discharge, denies lower abdominal pain, denies abdominal or vaginal trauma. Patient has a history of cervical shortening, at 16 weeks she was measured to be 2.9 cm. Today she was supposed have an appointment [facility] but when she started having fluid leaking she came to the emergency department instead. TRAVEL OUTSIDE OF THE [place] IN LAST 30 DAYS: No - Related Data Allergies/Adverse Reactions: No Known Allergies Allergy (Verified 11/19/18 07:50) Past Medical History - General Information source: Patient - Social History Smoking Status: Never Smoker Chew tobacco use (# tins/day): No Frequency of alcohol use: None Drug Abuse: None Family History: Reviewed & Not Pertinent Renal/ Medical History: Denies: Hx Peritoneal Dialysis Past Surgical History: Reports: Hx Oral Surgery, Hx Orthopedic Surgery - left knee, Hx Tonsillectomy Review of Systems - Review of Systems Constitutional: No symptoms reported Gastrointestinal: See HPI Female Genitourinary: See HPI -: Yes All other systems reviewed and negative Physical Exam - Vital signs Vitals: Temp Pulse Resp BP Pulse Ox 98.6 F 125 H 16 145/78 H 100 01/05/20 15:01 01/05/20 15:01 01/05/20 15:01 01/05/20 15:01 01/05/20 15:01 Interpretation: Hypertensive, Tachycardic - Notes Notes: GENERAL: Alert, interacts well. No acute distress. HEAD: Normocephalic, atraumatic EYES: Pupils equal, round and reactive to light, extraocular movements intact. ENT: Oral mucosa moist, tongue midline. NECK: Full range of motion, supple, trachea midline. LUNGS: Clear to auscultation bilaterally, no wheezes, rales or rhonchi, no respiratory distress. HEART: Regular rate and rhythm, no murmurs, gallops, rubs. ABDOMEN: Soft, gravid, appropriate for dates, nontender, no guarding, nondisten ded, bowel sounds present in all 4 quadrants. : Chaperoned by DORA Johnson. Pelvic examination reveals a closed cervix. No discharge is noted, no fluid even while bearing down. No evidence of cervical dilation. Patient states that it is more easily seen while standing up so the patient then stood up and I had her bear down, there was a small amount of bulging of her bladder and her urethra was able to be visualized however no fluid was leaking, I did not see her cervix and again I did not see membranes or amniotic fluid. EXTREMITIES: Moves all 4 extremities spontaneously, no edema, radial and dorsalis pedis pulses 2/4 bilaterally. No cyanosis. NEUROLOGICAL: Alert and oriented x3, normal speech. PSYCH: anxious. SKIN: Warm, Dry, normal turgor, no rashes or lesions noted. Course - Re-evaluation Re-evalutation: 01/05/20 20:21 Pelvic examination does not reveal any sign of cervical dilation, no fluid is seen when she bears down, when the patient stands and bears down all I see is her urethra. There is no sign of ruptured membranes. CBC shows leukocytosis of 13.1, this is fairly common in , mild anemia with hemoglobin 11.8, patient is counseled to use vitamins with iron, CMP shows slight low sodium at 21 otherwise unremarkable, urinalysis unremarkable, ferning pattern is absent on the ferning test. Wet prep does not show any signs of trichomonas or bacterial vaginosis. Gonorrhea and Chlamydia are pending. Amount of amniotic fluid on ultrasound appears appropriate at bedside and on formal ultrasound. No evidence of cervical shortening or dilation. Discussed with Dr. Davis who rec ommends the patient come to the office tomorrow to have a repeat ultrasound done for transvaginal measurement of her cervix. Discharged home. Obstetrics Ultrasound 01/05/20 15:51 IMPRESSION: LIVING INTRAUTERINE . ESTIMATED GESTATIONAL AGE 18 weeks 5 days. NO VISUALIZED ANOMALIES. Trimester of : Second trimester - 13 weeks 1 day to 27 weeks 6 days. - Vital Signs Vital signs: Temp Pulse Resp BP Pulse Ox 98.7 F 74 18 133/76 H 99 01/05/20 19:37 01/05/20 19:37 01/05/20 19:37 01/05/20 19:37 01/05/20 19:37 - Laboratory Result Diagrams: 01/05/20 16:27 01/05/20 16:27 Laboratory results interpreted by me: 01/05/20 01/05/20 16:27 16:27 WBC 13.1 H Hgb 11.8 L Hct 35.2 L Lymph % (Auto) 9.2 L Absolute Neuts (auto) 11.3 H Seg Neutrophils % 86.1 H Sodium 133.8 L Carbon Dioxide 21 L BUN 6 L Creatinine 0.44 L Discharge - Discharge Clinical Impression: Second trimester Condition: Stable Disposition: HOME, SELF-CARE Additional Instructions: Today we did not find any signs of ruptured membranes. You are 18 weeks and 5 days . Your ultrasound looks good. I did discuss your case with Dr. Davis, he would like you to follow-up with them in the office tomorrow. They can do a repeat ultrasound there to get a transvaginal measurement of your cervix. Here today it was 3.8. Do not do any heavy lifting until you are cleared by PROFESSOR OF SPECIAL EDUCATION. Do not have sex or put anything in your vagina until you are cleared by PROFESSOR OF SPECIAL EDUCATION. Referrals: KIERAN VALERIO MD [ACTIVE STAFF] - Follow up as needed
--- NOTE | 2020-01-05 16:44 | RADIOLOGY REPORT (SQ) ---
EXAM DESCRIPTION: U/S OB 14+ TRNABD 1GES W/O DOP IMAGES COMPLETED DATE/TIME: 01/05/2020 4:24 pm REASON FOR STUDY: possible amniotic fluid leak COMPARISON: None. TECHNIQUE: Static and Dynamic grayscale imaging performed of gravid uterus using transabdominal appr oach. Additional selected color Doppler and spectral images recorded. All stored on PACS. LIMITATIONS: None. FINDINGS: FETUSES SEEN:1 EGA: 18 weeks 5 days Calculated using BPD,FL,HC,AC documented on images. No discrepancy with clinica l dates. ANASTASIA: 06/02/2020 EFW: 256 grams PERCENTILE: Not applicable. Fetus less than or equal to 20 weeks gestation. LVP: 5.7 x 6.7 cm. PLACENTA: Posterior GRADE: I PRESENTATION: Variable. HEART RATE: 143 beats per minute. anatomical survey was not performed. MATERNAL ADNEXA: Maternal ovaries not visualized. CERVICAL LENGTH: 3.8 cm. Closed. OTHER: No other significant finding. IMPRESSION: LIVING INTRAUTERINE . ESTIMATED GESTATIONAL AGE 18 weeks 5 days. NO VISUALIZED ANOMALIES. Trimester of : Second trimester - 13 weeks 1 day to 27 weeks 6 days. TECHNICAL DOCUMENTATION: JOB ID: [id number] 2010 [employer]- All Rights Reserved Reading location - IP/workstation name: [email or web address]
[2020-01-05 17:00] LABS: ABSOLUTE BASOPHILS # (AUTO) 0.1 10^3/uL (0.0-0.2); ABSOLUTE EOSINOPHILS # (AUTO) 0.1 10^3/uL (0.0-0.6); ABSOLUTE LYMPHOCYTES (AUTO) 1.2 10^3/uL (0.5-4.7); ABSOLUTE MONOCYTES (AUTO) 0.5 10^3/uL (0.1-1.4); ABSOLUTE NEUT (AUTO) 11.3 10^3/uL (1.7-8.2); BASOPHILS % (AUTO) 0.4 % (0-2); EOSINOPHILS % (AUTO) 0.7 % (0-6); HEMATOCRIT 35.2 % (36.0-47.0); HEMOGLOBIN 11.8 g/dL (12.0-15.5); LYMPHOCYTES % (AUTO) 9.2 % (13-45); MEAN CORPUSCULAR HGB CONC 33.4 g/dL (32.0-36.0); MEAN CORPUSCULAR VOLUME 84 fl (80-97); MONOCYTES % (AUTO) 3.6 % (3-13); PLATELET COUNT 305 10^3/uL (150-450); RED CELL DISTRIBUTION WIDTH 13.9 % (11.5-14.0); SEGMENTED NEUTROPHILS % (AUTO) 86.1 % (42-78); TOTAL CELLS COUNTED % (AUTO) 100 %; WHITE BLOOD COUNT 13.1 10^3/uL (4.0-10.5)
[2020-01-05 17:15] LABS: ALKALINE PHOSPHATASE 77 U/L (38-126); ANION GAP 8 (5-19); ASPARTATE AMINO TRANSFERASE 21 U/L (14-36); BILIRUBIN,TOTAL 0.3 mg/dL (0.2-1.3); BLOOD UREA NITROGEN 6 mg/dL (7-20); CARBON DIOXIDE 21 mmol/L (22-30); CHLORIDE 105 mmol/L (98-107); GLUCOSE 91 mg/dL (75-110); POTASSIUM 4.7 mmol/L (3.6-5.0); TOTAL PROTEIN 7.3 g/dL (6.3-8.2)
[2020-01-05 17:59] LABS: APPEARANCE,URINE CLEAR; BILIRUBIN,URINE NEGATIVE (NEGATIVE); COLOR,URINE COLORLESS; GLUCOSE, URINE NEGATIVE (NEGATIVE); KETONES,URINE NEGATIVE (NEGATIVE); PROTEIN,URINE NEGATIVE (NEGATIVE); URINE SPECIFIC GRAVITY 1.005; UROBILINOGEN,URINE NEGATIVE mg/dL (<2.0)
[2020-01-05 19:37] LABS: EPITHELIALS (WET MOUNT) 3+ EPITHELIALS SEEN; T.VAGINALIS (WET MOUNT) NO TRICHOMONAS SEEN; WBCS (WET MOUNT) FEW WBCS SEEN; YEAST (WET MOUNT) NO YEAST SEEN
[2020-01-05 20:47] VITALS: BP 130/72
[2020-01-05 21:21] LABS: CHLAM PCR NOT DETECTED (NOT DETECT)
== END 2020-01-05 20:47 | disposition home or self-care (01) ==
LOC: ER 14:57
DX: O26.892 Other specified pregnancy related conditions, second trimester (principal); R19.8 Other specified symptoms and signs involving the digestive system and abdomen; O99.112 Other diseases of the blood and blood-forming organs and certain disorders involving the immune mechanism complicating pregnancy, second trimester; D72.829 Elevated white blood cell count, unspecified; O99.012 Anemia complicating pregnancy, second trimester; D64.9 Anemia, unspecified; Z3A.18 18 weeks gestation of pregnancy
CPT/HCPCS: 99284; 36415; 87210; 85025; 80053; 81001; 87491; 87591; 76805; Q0114

== ENCOUNTER 2020-03-10 02:46 | Outpatient (CLI) | payer BC, MEDICAID ==
[2020-03-10 03:41] LABS: APPEARANCE,URINE CLEAR; BILIRUBIN,URINE NEGATIVE (NEGATIVE); COLOR,URINE STRAW; GLUCOSE, URINE NEGATIVE (NEGATIVE); KETONES,URINE NEGATIVE (NEGATIVE); LEUKOCYTE ESTERASE,URINE NEGATIVE (NEGATIVE); NITRITE,URINE NEGATIVE (NEGATIVE); PROTEIN,URINE NEGATIVE (NEGATIVE); UROBILINOGEN,URINE NEGATIVE mg/dL (<2.0)
[2020-03-10 03:49] LABS: URINE AMPHETAMINES SCREEN NEGATIVE; URINE BARBITURATES SCREEN NEGATIVE; URINE BENZODIAZEPINES SCREEN NEGATIVE; URINE COCAINE SCREEN NEGATIVE; URINE MARIJUANA (THC) SCREEN NEGATIVE; URINE METHADONE SCREEN NEGATIVE; URINE PHENCYCLIDINE SCREEN NEGATIVE
== END 2020-03-10 04:02 | disposition home or self-care (01) ==
LOC: LC 02:46
PROVIDERS: ATTEND Obstetrics & Gynecology
DX: O47.02 False labor before 37 completed weeks of gestation, second trimester (principal); Z3A.27 27 weeks gestation of pregnancy
CPT/HCPCS: 80307; 81001

== ENCOUNTER 2020-05-06 19:01 | Outpatient (CLI) | payer BC, MEDICAID ==
[2020-05-06 19:55] LABS: APPEARANCE,URINE CLEAR; BILIRUBIN,URINE NEGATIVE (NEGATIVE); COLOR,URINE STRAW; GLUCOSE, URINE NEGATIVE (NEGATIVE); KETONES,URINE NEGATIVE (NEGATIVE); LEUKOCYTE ESTERASE,URINE NEGATIVE (NEGATIVE); NITRITE,URINE NEGATIVE (NEGATIVE); PROTEIN,URINE NEGATIVE (NEGATIVE); URINE SPECIFIC GRAVITY 1.009; UROBILINOGEN,URINE NEGATIVE mg/dL (<2.0)
[2020-05-06 20:22] LABS: URINE AMPHETAMINES SCREEN NEGATIVE; URINE BARBITURATES SCREEN NEGATIVE; URINE BENZODIAZEPINES SCREEN NEGATIVE; URINE COCAINE SCREEN NEGATIVE; URINE MARIJUANA (THC) SCREEN NEGATIVE; URINE METHADONE SCREEN NEGATIVE; URINE PHENCYCLIDINE SCREEN NEGATIVE
--- NOTE | 2020-05-06 20:34 | Non Stress Test Report ---
Non Stress Test Datetime Report Generated by CPN: 05/06/2020 20:34 DEMOGRAPHIC EGA NST: 36.0 INDICATION Indication for Study (NST) Other: Gestational age greater than 32 weeks VITAL SIGNS Temperature - NST: 98.4 Pulse - NST: 133 RESP - NST: 17 NBPSYS NST: 110 NBPDIA NST: 78 MONITORING Monitor Explained: Monitor Explained; Test Explained; Patient Verbalized Understanding Time on Monitor: 05/06/2020 19:18 Time off Monitor: 05/06/2020 20:22 NST Duration: 64 NST INTERVENTIONS NST Interventions: PO Hydration; Reposition Patient Physician Notified NST: Dr. Valeriano BABY A: [id number] BABY A Movement : Present Contraction Frequency : irregular FHR Baseline : 135 Accelerations : 15X15 Variability : Moderate 6-25bpm NST Review: Meets Criteria for Reactive NST NST Review and Verified By : Preston Wagner RN NST Results: Reactive NST REPORT Report Trigger: Send Report
== END 2020-05-06 20:31 | disposition home or self-care (01) ==
LOC: LC 19:01
PROVIDERS: ATTEND Obstetrics & Gynecology
DX: O47.03 False labor before 37 completed weeks of gestation, third trimester (principal); Z3A.35 35 weeks gestation of pregnancy
CPT/HCPCS: 59025; 80307; 81001; 84112

== ENCOUNTER 2020-05-24 16:56 | Outpatient (CLI) | payer BC, MEDICAID ==
[2020-05-24 18:07] LABS: APPEARANCE,URINE CLEAR; BILIRUBIN,URINE NEGATIVE (NEGATIVE); COLOR,URINE STRAW; GLUCOSE, URINE NEGATIVE (NEGATIVE); KETONES,URINE NEGATIVE (NEGATIVE); LEUKOCYTE ESTERASE,URINE NEGATIVE (NEGATIVE); NITRITE,URINE NEGATIVE (NEGATIVE); PROTEIN,URINE NEGATIVE (NEGATIVE); URINE SPECIFIC GRAVITY 1.006; UROBILINOGEN,URINE NEGATIVE mg/dL (<2.0)
[2020-05-24] MEDS ORDERED: OXYTOCIN/0.9 % SODIUM CHLORIDE 0 UNIT/0 ML RTUINJ ONE (18:30)
[2020-05-24] MEDS ORDERED: LIDOCAINE 1% INJ-PF (10 MG/ML) 30 ML SDV ONE (18:30)
[2020-05-24] MEDS ORDERED: MISOPROSTOL 0.2 MG TABLET ONE (18:30)
[2020-05-24] MEDS ORDERED: OXYTOCIN 10 UNIT/ML VIAL ONE (18:30)
[2020-05-24 18:36] LABS: URINE AMPHETAMINES SCREEN NEGATIVE; URINE BARBITURATES SCREEN NEGATIVE; URINE BENZODIAZEPINES SCREEN NEGATIVE; URINE COCAINE SCREEN NEGATIVE; URINE MARIJUANA (THC) SCREEN NEGATIVE; URINE METHADONE SCREEN NEGATIVE; URINE PHENCYCLIDINE SCREEN NEGATIVE
--- NOTE | 2020-05-24 21:00 | Non Stress Test Report ---
Non Stress Test Datetime Report Generated by CPN: 05/24/2020 21:00 DEMOGRAPHIC EGA NST: 38.4 INDICATION Indication for Study (NST) Other: Gestational age greater than 32 weeks VITAL SIGNS Temperature - NST: 99.0 Pulse - NST: 100 RESP - NST: 16 NBPSYS NST: 118 NBPDIA NST: 75 MONITORING Monitor Explained: Monitor Explained; Test Explained; Patient Verbalized Understanding Time on Monitor: 05/24/2020 20:06 Time off Monitor: 05/24/2020 20:41 NST Duration: 35 NST INTERVENTIONS NST Interventions: PO Hydration; Reposition Patient Physician Notified NST: Dr. Vides BABY A: [id number] BABY A Movement : Present Contraction Frequency : 2-6 FHR Baseline : 135 Accelerations : 15X15 Decelerations : None Variability : Moderate 6-25bpm NST Review: Meets Criteria for Reactive NST NST Review and Verified By : Faith Sawyer RN NST Results: Reactive NST REPORT Report Trigger: Send Report
== END 2020-05-24 20:57 | disposition home or self-care (01) ==
LOC: LC 16:56
PROVIDERS: ATTEND Obstetrics & Gynecology Gynecology
DX: O47.1 False labor at or after 37 completed weeks of gestation (principal); Z3A.38 38 weeks gestation of pregnancy; Z88.8 Allergy status to other drugs, medicaments and biological substances
CPT/HCPCS: 59025; 80307; 81005; J2590; J3490

== ENCOUNTER 2020-05-30 07:21 | Inpatient (IN) | payer BC, MEDICAID ==
[2020-05-30] MEDS ORDERED: DIPHENHYDRAMINE HCL 25 MG CAPSULE PO PRN (08:08)
[2020-05-30] MEDS ORDERED: DIBUCAINE 1% OINTMENT 28 GM TP PRN (08:08)
[2020-05-30] MEDS ORDERED: MAG HYDROX/AL HYDROX/SIMETH SUSP 30 ML UDCUP PO PRN (08:08)
[2020-05-30] MEDS ORDERED: MAGNESIUM HYDROXIDE SUSP 30 ML UDCUP PO PRN (08:08)
[2020-05-30] MEDS ORDERED: ACETAMINOPHEN WITH CODEINE #3 TABLET PO PRN ×2 (08:08)
[2020-05-30] MEDS ORDERED: MEASLES,MUMPS&RUBELLA VACC/PF 0.5 ML VIAL SUBCUT PRN (08:08)
[2020-05-30] MEDS ORDERED: GLYCERIN/WITCH HAZEL LEAF 1 EACH MED..WIPE TP PRN (08:08)
[2020-05-30] MEDS ORDERED: ACETAMINOPHEN 650 MG SUPP.RECT PR PRN (08:08)
[2020-05-30] MEDS ORDERED: DIPH/PERTUSS(ACELL)/TETANUS VAC/PF 0.5 ML SYR (>=10YO) IM PRN (08:08)
[2020-05-30] MEDS ORDERED: ACETAMINOPHEN 325 MG TABLET PO PRN (08:08)
[2020-05-30] MEDS ORDERED: BENZOCAINE/MENTHOL AEROSOL SPRAY 56 ML TOP PRN (08:08)
[2020-05-30] MEDS ORDERED: FAMOTIDINE 20 MG TABLET PO PRN (08:08)
[2020-05-30] MEDS ORDERED: PSEUDOEPHEDRINE HCL 30 MG TABLET PO PRN (08:08)
[2020-05-30] MEDS ORDERED: OXYTOCIN/0.9 % SODIUM CHLORIDE 30 UNIT/500 ML RTUINJ IV PRN (08:08)
[2020-05-30] MEDS ORDERED: ZOLPIDEM TARTRATE 5 MG TABLET PO PRN (08:08)
[2020-05-30] MEDS ORDERED: VARICELLA VACC/PF (1350 UNIT/0.5 ML) 0.5 ML VIAL SUBCUT PRN (08:08)
[2020-05-30] MEDS ORDERED: IBUPROFEN 800 MG TABLET ONE ×2 (09:22→18:41)
[2020-05-30 10:31] LABS: ABSOLUTE BASOPHILS # (AUTO) 0.1 10^3/uL (0.0-0.2); ABSOLUTE EOSINOPHILS # (AUTO) 0.1 10^3/uL (0.0-0.6); ABSOLUTE LYMPHOCYTES (AUTO) 1.4 10^3/uL (0.5-4.7); ABSOLUTE MONOCYTES (AUTO) 0.7 10^3/uL (0.1-1.4); ABSOLUTE NEUT (AUTO) 13.4 10^3/uL (1.7-8.2); BASOPHILS % (AUTO) 0.4 % (0-2); EOSINOPHILS % (AUTO) 0.5 % (0-6); HEMATOCRIT 33.9 % (36.0-47.0); HEMOGLOBIN 11.5 g/dL (12.0-15.5); LYMPHOCYTES % (AUTO) 8.8 % (13-45); MEAN CORPUSCULAR HEMOGLOBIN 26.4 pg (27.0-33.4); MEAN CORPUSCULAR HGB CONC 33.9 g/dL (32.0-36.0); MEAN CORPUSCULAR VOLUME 78 fl (80-97); MONOCYTES % (AUTO) 4.5 % (3-13); PLATELET COUNT 231 10^3/uL (150-450); RED BLOOD COUNT 4.35 10^6/uL (3.72-5.28); RED CELL DISTRIBUTION WIDTH 18.9 % (11.5-14.0); SEGMENTED NEUTROPHILS % (AUTO) 85.8 % (42-78); TOTAL CELLS COUNTED % (AUTO) 100 %; WHITE BLOOD COUNT 15.6 10^3/uL (4.0-10.5)
[2020-05-30] MEDS: DOCUSATE SODIUM 100 MG CAPSULE PO SCH ×2 (10:31→18:48)
[2020-05-30] MEDS: SENNOSIDES/DOCUSATE 8.6-50 MG 1 EACH TABLET PO SCH (10:31)
[2020-05-30] MEDS: PRENATAL VITAMIN W DHA CAPSULE PO SCH (10:31)
[2020-05-30] MEDS: FERROUS SULFATE 325 MG TABLET PO SCH ×2 (10:31→18:48)
[2020-05-30] MEDS ORDERED: OXYTOCIN 10 UNIT/ML VIAL ONE (10:45)
[2020-05-30] MEDS ORDERED: LIDOCAINE 1% INJ-PF (10 MG/ML) 30 ML SDV ONE (10:48)
[2020-05-30] MEDS ORDERED: IBUPROFEN 800 MG TABLET PO SCH ×3 (14:00→22:00)
[2020-05-30] MEDS: IBUPROFEN 800 MG TABLET PO SCH (19:08)
[2020-05-31] MEDS: IBUPROFEN 800 MG TABLET PO SCH (06:06)
[2020-05-31 08:58] LABS: HEMATOCRIT 30.6 % (36.0-47.0); HEMOGLOBIN 10.5 g/dL (12.0-15.5); MEAN CORPUSCULAR HEMOGLOBIN 26.4 pg (27.0-33.4); MEAN CORPUSCULAR HGB CONC 34.3 g/dL (32.0-36.0); MEAN CORPUSCULAR VOLUME 77 fl (80-97); PLATELET COUNT 185 10^3/uL (150-450); RED BLOOD COUNT 3.98 10^6/uL (3.72-5.28); RED CELL DISTRIBUTION WIDTH 19.3 % (11.5-14.0); WHITE BLOOD COUNT 13.6 10^3/uL (4.0-10.5)
[2020-05-31 09:19] VITALS: BP 109/61
[2020-05-31] MEDS: PRENATAL VITAMIN W DHA CAPSULE PO SCH (10:18)
[2020-05-31] MEDS: SENNOSIDES/DOCUSATE 8.6-50 MG 1 EACH TABLET PO SCH (10:18)
[2020-05-31] MEDS: DOCUSATE SODIUM 100 MG CAPSULE PO SCH (10:18)
[2020-05-31] MEDS: FERROUS SULFATE 325 MG TABLET PO SCH (10:18)
--- NOTE | 2020-05-31 10:26 | PDOC PROGRESS REPORT ---
Subjective-OB Progress Note for:: 05/31/20 Subjective: Pt doing well, no concerns. She reports light bleeding, reg diet and voiding w/o difficulty. She would like to go home today. Physical Exam (OB) Vital Signs: Temp Pulse Resp BP Pulse Ox 98.4 F 87 22 H 109/61 100 05/31/20 08:00 05/31/20 08:00 05/31/20 08:00 05/31/20 08:00 05/31/20 08:00 Intake & Output 05/30/20 05/31/20 06/01/20 06:59 06:59 06:59 Intake Total 500 Balance 500 Weight 63.6 kg - PIH/Pre-Eclampsia Clonus: Negative Headache: Absent Epigastric Pain: No Visual Changes: No - Maternal Morbidity 59. Maternal Morbidity (serious complications experinced by the mother associated with labor and delivery: None of the above - Lochia Lochia Amount: Scant < 10 ml Lochia Color: Rubra/Red - Abdomen Description: Soft, Round Hernia Present: No Fundal Description: Firm, Midline Fundal Height: u/u - u/2 Objective-Diagnostic Laboratory: 05/31/20 08:23 05/30/20 05/30/20 05/31/20 10:14 10:14 08:23 WBC 15.6 H 13.6 H RBC 4.35 3.98 Hgb 11.5 L 10.5 L Hct 33.9 L 30.6 L MCV 78 L 77 L MCH 26.4 L 26.4 L MCHC 33.9 34.3 RDW 18.9 H 19.3 H Plt Count 231 185 Seg Neutrophils % 85.8 H Blood Type O NEGATIVE Antibody Screen POSITIVE 05/31/20 08:23 WBC RBC Hgb Hct MCV MCH MCHC RDW Plt Count Seg Neutrophils % Blood Type O NEGATIVE Antibody Screen Assessment and Plan(PN) - Assessment and Plan (1) Precipitous delivery Is this a current diagnosis for this admission?: Yes (2) Delivery normal Is this a current diagnosis for this admission?: Yes (3) Obstetrical laceration, second degree Is this a current diagnosis for this admission?: Yes - Time Spent with Patient Time with patient: Less than 15 minutes Medications reviewed and adjusted accordingly: Yes - Disposition Anticipated Discharge Disposition: Home, Self Care Anticipated Discharge Timeframe: within 24 hours
--- NOTE | 2020-05-31 10:28 | PDOC DISCHARGE SUMMARY ---
Impression - Admit/DC Date/PCP Admission Date/Primary Care Provider: 05/30/20 07:21 KIERAN VALERIO MD Discharge Date: 05/31/20 - Discharge Diagnosis (1) Precipitous delivery Is this a current diagnosis for this admission?: Yes (2) Delivery normal Is this a current diagnosis for this admission?: Yes (3) Obstetrical laceration, second degree Is this a current diagnosis for this admission?: Yes - Additional Information Resuscitation Status: Full Code Discharge Diet: Regular Discharge Activity: Balance Activity w/Rest, Pelvic Rest Referrals: KIERAN VALERIO MD [Primary Care Provider] - Prescriptions: Ibuprofen [Motrin 800 mg Tablet] 800 mg PO Q8HP PRN #60 tablet PRN Reason: Home Medications: Pnv No.95/Ferrous Fum/Folic AC [ Vitamins Tablet] 1 tab PO DAILY 05/06/20 Ibuprofen [Motrin 800 mg Tablet] 800 mg PO Q8HP PRN #60 tablet 05/31/20 HPI Reason(s) for Admission: Onset of Labor Procedures: None Intrapartum Procedure(s): Spontaneous Vaginal Delivery Intrapartum Procedure Note: Delivered in [facility], precipitous Complication(s): Laceration-Perineal Laceration-Degree: 2nd Hospital Course 59. Maternal Morbidity (serious complications experinced by the mother associated with labor and delivery: None of the above Results Laboratory Results: WBC 13.6 10^3/uL (4.0-10.5) H 05/31/20 08:23 RBC 3.98 10^6/uL (3.72-5.28) 05/31/20 08:23 Hgb 10.5 g/dL (12.0-15.5) L 05/31/20 08:23 Hct 30.6 % (36.0-47.0) L 05/31/20 08:23 MCV 77 fl (80-97) L 05/31/20 08:23 MCH 26.4 pg (27.0-33.4) L 05/31/20 08:23 MCHC 34.3 g/dL (32.0-36.0) 05/31/20 08:23 RDW 19.3 % (11.5-14.0) H 05/31/20 08:23 Plt Count 185 10^3/uL (150-450) 05/31/20 08:23 Lymph % (Auto) 8.8 % (13-45) L 05/30/20 10:14 Sawyer % (Auto) 4.5 % (3-13) 05/30/20 10:14 Eos % (Auto) 0.5 % (0-6) 05/30/20 10:14 Baso % (Auto) 0.4 % (0-2) 05/30/20 10:14 Absolute Neuts (auto) 13.4 10^3/uL (1.7-8.2) H 05/30/20 10:14 Absolute Lymphs (auto) 1.4 10^3/uL (0.5-4.7) 05/30/20 10:14 Absolute Monos (auto) 0.7 10^3/uL (0.1-1.4) 05/30/20 10:14 Absolute Eos (auto) 0.1 10^3/uL (0.0-0.6) 05/30/20 10:14 Absolute Basos (auto) 0.1 10^3/uL (0.0-0.2) 05/30/20 10:14 Seg Neutrophils % 85.8 % (42-78) H 05/30/20 10:14 Blood Type O NEGATIVE 05/31/20 08:23 Antibody Screen POSITIVE 05/30/20 10:14 Antibody Identification RHOGAM INDUCED ANTI-D 05/30/20 10:14 Plan Plan of Treatment: f/u at [facility] 4 wks Time Spent: Less than 30 Minutes
[2020-05-31] MEDS ORDERED: IBUPROFEN 800 MG TABLET PO SCH (19:00)
--- NOTE | 2020-06-01 12:03 | Delivery Summary ---
Del Sum A-C Datetime Report Generated by CPN: 06/01/2020 12:03 DELIVERY PERSONNEL DELIVERY PERSONNEL: [id number] Delivery Doctor:: Fransisca Davis, Labor and Delivery Nurse:: Zuly Guallpa, RN MATERNAL INFORMATION Delivery Anesthesia: None Medications After Delivery: Pitocin 10 Units IM Meds After Delivery Comment: Lidocaine prior to repair Estimated Blood Loss (ml): 250 Maternal Complications: Precipitous Labor (<3hrs) LABOR SUMMARY EDC: 06/03/2020 00:00 No. Babies in Womb: 1 Attempted: No Labor Anesthesia: None LABOR INFORMATION Reason for Induction: Not Applicable Onset of Labor: 05/30/2020 06:27 Oxytocin: N/A Group B Beta Strep: Negative Antibiotics # of Doses: 0 Steroids Given: None Reason Steroids Not Administered: Not Applicable MEMBRANES Membranes Rupture Method: Spontaneous Amniotic Fluid Odor: None STAGES OF LABOR Stage 3 hr: 0 Stage 3 min: 27 Total Time in Labor hr: 1 Total Time in Labor min: 9 VAGINAL DELIVERY Episiotomy: None Laceration #1: Perineal Laceration Extension #1: Second Degree Laceration #2: None Laceration Extension #2: N/A Laceration #3: None Laceration Extension #3: N/A Laceration Repair: Yes Laceration Repair Note: Large second degree laceration repaired with 3-0 chromic suture in usual fashion. Sponge Count Correct: N/A Sharps Count Correct: No CSECTION DELIVERY Primary Indication: N/A Secondary Indication: N/A CSection Incision: N/A BABY A INFORMATION Delivery Date/Time: 05/30/2020 07:09 Method of Delivery: Vaginal Nurse Controlled Delivery: No Nurse Controlled Delivery: No Born in Route : Yes : N/A : N/A Forceps: N/A Forceps: N/A Vacuum Extraction: N/A Vacuum Extraction: N/A Shoulder Dystocia : No PRESENTATION/POSITION BABY A Presentation: Cephalic Cephalic Presentation: Vertex Breech Presentation: N/A PLACENTA INFORMATION BABY A Placenta Delivery Time : 05/30/2020 07:36 Placenta Method of Delivery: Spontaneous Placenta Status: Delivered SCORES BABY A Heart Rate 1 min: >100 bpm Resp Effort 1 min: Good Cry Reflex Irritability 1 min: Cough or Sneeze or Pulls Away Muscle Tone 1 min: Active Motion Color 1 min: Blue/Pale Resuscitation Effort 1 min: Tactile Stimulation SCORE 1 MIN: 8 Heart Rate 5 min: >100 bpm Resp Effort 5 min: Good Cry Reflex Irritability 5 min: Cough or Sneeze or Pulls Away Muscle Tone 5 min: Active Motion Color 5 min: Body [place], Extremities Blue Resuscitation Effort 5 min: Tactile Stimulation SCORE 5 MIN: 9 INFORMATION BABY A Gestational Age at Delivery: 39.3 Gestational Status: Full Term- 39- 40.6 Weeks Infant Outcome : Liveborn Infant Condition : Stable Sex: Male Sex: Male IDENTIFICATION BABY A Verification Date/Time: 05/30/2020 09:25 ID Band Number: [id number] Mother's Name Verified: Yes Infant RN Verifying Infant: John Guallpa, [facility] Additional Verifying Personnel: Madeline Bautista RN WEIGHT/LENGTH BABY A Infant Birthweight (gm): 3575 Infant Weight (lb): 7 Infant Weight (oz): 14 Length (in): 20.50 Length (cm): 52.07 CORD INFORMATION BABY A No. Cord Vessels: 3 Nuchal Cord : N/A Cord Blood Taken: Yes-For Eval (Mom's Blood Type - or O+) Infant Suction: None ASSESSMENT BABY A Infant Complications: None Physical Findings at Delivery: Within Normal Limits Transferred To: Nursery SIGNATURES Signature: with User ID: [email or web address]
--- NOTE | 2020-06-04 10:44 | Admission Physical ---
Datetime Report Generated by CPN: 06/04/2020 10:43 CURRENT ADMISSION Chief Complaint: Uterine Contractions Chief Complaint Other: [facility]. Indication for Induction: Not Applicable Admit Impression : Term, Intrauterine Admit Plan: Admit to Unit ALLERGIES Medication Allergies: Yes Medication Allergies: progesterone/VA (05/30/2020) Latex: No Latex Allergies Food Allergies: none Environmental Allergies: none OBSTETRICAL HISTORY EDC: 06/03/2020 00:00 : 2 Para: 1 Term: 1 : 0 SAB: 0 IAB: 0 Ectopic: 0 Livin Cesareans: 0 VBACs: 0 Multiple Births: 0 Gestational Diabetes: No Rh Sensitization: No Incompetent Cervix: Yes JAI: No Infertility: No ART Treatment: No Uterine Anomaly: No IUGR: No Hx Previous C/S: No Macrosomia: No Hx Loss/Stillborn: No PIH: No Hx : No Placenta Previa/Abruption: No Depression/PP Depression: No PTL/PROM: Yes Post Hemorrhage: No Current Procedures: Ultrasound; NST Obstetrical History Comments: 2018- Pt states she went into PTL at 33 weeks, but delivered at 38 weeks "within 2hrs of start of labor" G2- Current SEE RECORDS Alcohol: No Marijuana : No Cocaine: No Other Illicit Drugs: No Cigarettes: Never Smoker. 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 Heart Disease: No Hosp/Surgery: Yes Autoimmune Disorder: No Anesthetic Complications: No Kidney Disease: No Abnormal Pap Smear: No Neuro/Epilepsy: No Psychiatric Disorders: No Other Medical Diseases: No Hepatitis/Liver Disease: No Significant Family History: No Varicosities/Phlebitis: No Trauma/Violence : No Thyroid Dysfunction: No Medical History Comments: wisdom teeth removal in 2013, left knee surgery in 2010, T _ A as a child INFECTIOUS HISTORY Gonorrhea: No Genital Herpes: No Chlamydia: No Tuberculosis: No Syphilis: No Hepatitis: No HIV/AIDS Exposure: No Rash or Viral Illness: No HPV: No PHYSICAL EXAM General: Normal HEENT: Normal Neurologic: Normal Thyroid: Normal Heart: Normal Lungs: Normal Breast: Deferred Back: Normal Abdomen: Normal Genitourinary Exam: Normal Extremities: Normal DTRs: Normal Pelvic Type: Adequate Vital Signs: Reviewed FETUS A EGA: 40.1 Admit Comment: She was admitted and the placenta was delivered. [facility]. She had a second degree perineal laceration that was repaired. The delivery date and H + P are for 30 PLANS FOR LABOR AND DELIVERY Labor and Delivery: None Feeding Preference: Breast Benefit of Breast Feed Discussed: Yes Circumcision: Yes INFORMED CONSENT Signature: with User ID: [email or web address]
== END 2020-05-31 13:22 | disposition home or self-care (01) | DRG 807 ==
LOC: LR 07:21 → 2S 10:05
PROVIDERS: ADMIT Obstetrics & Gynecology; ATTEND Obstetrics & Gynecology
PROC: 10E0XZZ Delivery of Products of Conception, External Approach (ICD-10-PCS; principal; 2020-05-30)
PROC: 0KQM0ZZ Repair Perineum Muscle, Open Approach (ICD-10-PCS; 2020-05-30)
DX: O62.3 Precipitate labor (principal); Z37.0 Single live birth; O70.1 Second degree perineal laceration during delivery; O26.893 Other specified pregnancy related conditions, third trimester; Z3A.39 39 weeks gestation of pregnancy; Z67.41 Type O blood, Rh negative
CPT/HCPCS: 36415; 85025; 85027; 85461; 86850; 86870; 86900; 86901; J2590; J2790; J3490